=== PATIENT | male | born 1960 | race African-American/Black ===

== ENCOUNTER 2018-12-30 22:35 | Emergency (ER) | payer OTHER, MEDICAID ==
--- NOTE | 2018-12-31 01:39 | ER Document Report ---
ED General - General Chief Complaint: ETOH Abuse Stated Complaint: ETOH Time Seen by Provider: 12/31/18 01:35 Primary Care Provider: HERMELINDA HINES [NO LOCAL MD] - Follow up as needed - HPI Notes: 58-year-old male who presents in police custody intoxicated. Apparently patient had been drinking heavily and unquantified amount type of alcohol the night. He tried to get into his own house but it forgot his keys so he broke in. Neighbors called the police and police found the patient watching TV sitting on his couch extremely intoxicated. Patient has had no antecedent trauma, no report of traumatic injury. Apparently when he came in via EMS he was quite agitated and in order was given for 5 mg of IM Versed which she received. Since then he has been sleeping and easily arousable. He is a poor historian due to intoxication but he denies any injury, will not quantify his alcohol use for me, denies any medical complaint. No other modifying factors, no other associated symptoms, no other provocative or palliative factors. - Related Data Allergies/Adverse Reactions: No Known Allergies Allergy (Unverified 09/25/10 01:16) Past Medical History - Social History Smoking Status: Unknown if Ever Smoked Family History: Reviewed & Not Pertinent Patient has suicidal ideation: - unk Patient has homicidal ideation: - unk - Medical History Medical History: Other - History is limited by intoxication Pulmonary Medical History: Reports: Hx COPD Neurological Medical History: Denies: Hx Seizures Renal/ Medical History: Denies: Hx Peritoneal Dialysis Review of Systems - Review of Systems -: Yes ROS unobtainable due to patient's medical condition Physical Exam - Vital signs Vitals: Resp Pulse Ox 20 93 12/30/18 23:05 12/30/18 23:05 - Notes Notes: General: Well developed . Intoxicated HEENT: Normocephalic, atraumatic. Pupils equal round reactive to light. No JVD. Chest: No trauma. Respiratory: Good air exchange, normal excursion. Cardiac: Regular rhythm. No murmurs or gallops. Abdomen: Soft, benign. Nondistended. Nontender. Back: No asymmetry or gross abnormality. Motor: Grossly normal power and tone. Neurologic: Slurred speech but cooperative, obeys simple commands. Withdraws x4, DTRs 1+ symmetric. Does not cooperate with finer neurologic testing Vascular: Well perfused. Normal peripheral pulses. Skin: No petechiae or purpura. Course - Re-evaluation Re-evalutation: 12/31/18 01:37 This is a 58-year-old male who is clinically intoxicated and smells of alcohol. There is no external sign of trauma. No external sign of head injury. No weaver sign, hemotympanum, bruising or other abnormality. At this time I think he is intoxicated, we will continue to watch him with serial observations to ensure that he is sobering up appropriately, if he does not continue to improve as he has, will consider additional differential diagnoses. 12/31/18 03:48 Patient is doing well, resting comfortably, easily arousable, clinically sobering up. Accu-Chek unremarkable. Plan is for discharge home with a responsible adult or when he is clinically sober. Will be followed by the overnight physician. - Vital Signs Vital signs: Temp Pulse Resp BP Pulse Ox 22 H 116/79 93 12/31/18 01:31 12/31/18 02:01 12/31/18 01:38 Discharge - Discharge Clinical Impression: Alcohol intoxication Qualifiers: Complication of substance-induced condition: uncomplicated Qualified Code(s): F10.920 - Alcohol use, unspecified with intoxication, uncomplicated Condition: Stable Disposition: HOME, SELF-CARE Instructions: Acute Alcohol Intoxication ([facility]) Referrals: HERMELINDA HINES [NO LOCAL MD] - Follow up as needed CELINE MARSHALL MD [HONORARY] - Follow up as needed
[2018-12-31 07:08] VITALS: BP 135/67
== END 2018-12-31 07:53 | disposition home or self-care (01) ==
LOC: ER 22:35
DX: F10.920 Alcohol use, unspecified with intoxication, uncomplicated (principal); J44.9 Chronic obstructive pulmonary disease, unspecified
CPT/HCPCS: 82962; 94640; 99284